=== PATIENT | female | born 1990 | race Caucasian/White ===

== ENCOUNTER 2018-12-13 22:42 | Inpatient (IN) | payer MEDICAID ==
[~2018-12-13] VITALS: Ht 162.6 cm; Wt 68.1 kg
[~2018-12-13 22:42] MED LIST: BACTDS PO; CEPH-443 PO
[2018-12-13 23:38] VITALS: BP 108/61; PULSE 80; RESP 15
[2018-12-14] MEDS ORDERED: LACTATED RINGER'S 1,000 ML IV ONE (01:30)
[2018-12-14] MEDS ORDERED: TERBUTALINE 1 MG/ML INJ SC PRN (01:30)
[2018-12-14] MEDS: LACTATED RINGER'S 1,000 ML IV SCH ×5 (03:00→21:53)
--- NOTE | 2018-12-14 03:16 | HP ---
Date/Time of Note Date/Time of Note DATE: 12/14/18 TIME: 02:53 OB - History Hx of Present Free Text/Dictation 28 y.o. with an IUP at 23w 5d came in with c/o brown d/c and vaginal pressure. Pt was jeol frequently and was given IV hydration and one dose of terbutaline while waiting for the US. On US the cervix was determined to be short 1.47 cm and there was funneling. The pt was admitted. Estimated Due Date: Apr 05, 2019 : 2 Para: 1 Care: Good Care Ultrasounds: Normal mid trimester US Obstetrical Complications: None Medical Complications: None Other Concerns: POBHx: x 1 for failure to progress, 7# 10 oz 2016. Past Family/Social History * Past Medical, Surgical, Family and Obstetric Histories reviewed with pt as the prenatals are not available. Blood Type: Unknown Rubella: unknown RPR/VDRL: Unknown GBS Status: Unknown HBsAG: Unknown OB Admission Exam Vital Signs Vital Signs Vital Signs Date Temp Pulse Resp B/P (MAP) Pulse Ox O2 O2 Flow FiO2 Time Delivery Rate 12/13/18 98.4 80 15 108/61 Room Air 23:38 (77) Physical Exam HEENT: WNL Heart: Rhythm Normal Lungs: Clear Abdomen: WNL Extremities: Normal Cervical Dilatation: Fingertip (on US the cervix is 1.47 cm and there is funneling.) Membranes: Intact Heart Rate: 140's Accelerations: Accelerations Present Decelerations: No Decelerations Varibility: Moderate Contractions on Admission: < 5 Minutes Apart Intensity: Mild Last 72 hours Lab Results CBC & BMP 12/14/18 00:24 OB Assessment/Plan Reason for admission: labor Other Assessment: Short cervix. Other plan: Admit for IV hydration. Magnesium sulfate tocolysis and neuroprotection. Antibiotics. Steroids. Bedrest. Perinatology and neonatology consults today. ADRIEL RANDALL MD Dec 14, 2018 03:08
[2018-12-14] MEDS ORDERED: ACETAMINOPHEN 325 MG TAB PO PRN (03:30)
[2018-12-14] MEDS ORDERED: MAGNESIUM SULFATE 4 GM/100 ML 100 ML IV ONE (03:30)
[2018-12-14] MEDS ORDERED: AL HYDROX/MG HYDROX/SIMETH 30 ML CUP PO PRN (03:30)
[2018-12-14] MEDS: MAGNESIUM SULFATE 20 GM/500 ML 500 ML IV SCH ×2 (04:44→14:58)
[2018-12-14] MEDS: AMPICILLIN 2 GM/NS (PMX) 100 ML IV SCH ×4 (04:45→22:48)
[2018-12-14] MEDS: BETAMET NA PHOS/AC(6 MG/ML) 2 ML INJ SYG IM SCH (04:46)
--- NOTE | 2018-12-14 04:58 | TRIAGE ---
OB Triage Datetime Report Generated by CPN: 12/14/2018 04:57 Datetime: 12/14/2018 02:09 Stage of : OB Triage Heart Rate FHR Baseline Rate: 145 Monitor Mode: External US Datetime: 12/14/2018 01:15 Stage of : OB Triage Datetime: 12/14/2018 00:26 Stage of : OB Triage Heart Rate FHR Baseline Rate: 145 Monitor Mode: External US Datetime: 12/13/2018 23:30 Stage of : OB Triage Labor Evaluation Frequency: 2-5 Monitor Mode: External Duration (sec)2399: 20-30 Quality: Mild Pattern: Normal: <= 5 Contractions in 10 Minutes Resting Tone Panola: Relaxed Heart Rate FHR Baseline Rate: 150 Monitor Mode: External US FHR Baseline Changes: No Baseline Change Variability: Moderate 6-25 bpm Accelerations: 15X15 Decelerations: None Category: Category I Datetime: 12/13/2018 23:27 Labor Evaluation Frequency: 2-3 Monitor Mode: External Quality: Mild Pattern: Normal: <= 5 Contractions in 10 Minutes Resting Tone Panola: Relaxed Heart Rate FHR Baseline Rate: 150 Monitor Mode: External US FHR Baseline Changes: No Baseline Change Variability: Moderate 6-25 bpm Accelerations: 10X10 Decelerations: None Category: Category I Datetime: 12/13/2018 23:00 Time of Arrival: 12/13/2018 22:25 EGA: 23.6 Arrived By: Ambulatory Arrived From: Home Chief Complaint: c/o vag pressure and brown discharge beg 2200 Movement: Present Contractions: Denies/Absent Rupture of Membranes: Denies Vaginal Bleeding: Small Vaginal Discharge: Present Recent Sexual Intercouse: Denies Abdominal Trauma: Not Applicable Patient Complaints: Other Time Provider Notified: 12/13/2018 23:30 Provider Notified: Dr Shepherd Initial Plan: EFM,PO HYDRATION, UA,CBC,TYPE AND SCREEN,CVL,EFW,GABRIELLA Datetime: 12/13/2018 22:55 Vaginal Exam Membrane Status: Intact Datetime: 12/13/2018 22:51 Stage of : OB Triage Maternal Assessment Level of Consciousness: Keenly Alert, Responsive Headache: Denies Blurred Vision: No Respiratory Effort: Unlabored Nausea/Vomiting: Denies RUQ Epigastric Pain: Denies Facial Edema: None Monitor Mode: External Resting Tone Panola: Relaxed Heart Rate FHR Baseline Rate: 150 Monitor Mode: External US Pain Assessment Pain Scale: 2 Pain Presence: Intermittent Pain Type: Pressure
[2018-12-14] MEDS: PRENATAL VITAMIN PO SCH (10:41)
[2018-12-15] MEDS: MAGNESIUM SULFATE 20 GM/500 ML 500 ML IV SCH ×3 (01:19→19:21)
[2018-12-15] MEDS: AMPICILLIN 2 GM/NS (PMX) 100 ML IV SCH ×4 (04:45→23:00)
[2018-12-15] MEDS: BETAMET NA PHOS/AC(6 MG/ML) 2 ML INJ SYG IM SCH (04:46)
[2018-12-15] MEDS: PRENATAL VITAMIN PO SCH (09:02)
[2018-12-15] MEDS: LACTATED RINGER'S 1,000 ML IV SCH ×4 (11:11→19:59)
--- NOTE | 2018-12-15 17:16 | QN ---
Documentation Comment consult neonatology Consult at the request of Dr. Ed Goldstein Efrem was admitted 2 days ago 23 and 5/seventh weeks gestation by dates with evidence of labor and a brown discharge. Mother was given antibiotics, magnesium sulfate tocolysis and 2 doses of steroids. Presently mother is at 24 weeks by dates 25 05/31 by ultrasound with an estimated weight of 800 g. I spoke to the mother about the risks of delivery at both 24+ weeks and 29 weeks including but not limited to the following. 1 RDS/ALP. I discussed premature lung disease including respiratory distress syndrome of use of ventilatory management and oxygen. Also discussed the risk of apnea prematurity requiring possible noninvasive support and/or caffeine. Usually these will have resolved somewhere around 34 to 35 weeks of gestation. 2. Cardiac/PDA: Spoke about the risks of hypertension use of volume support and inotropic agents. I also discussed the risks of the ductus arteriosus that may complicate the respiratory disease on the use of medication treatment or surgical closure if necessary. The risk for PDA decreases remarkably from 25 to 29 weeks of gestation 3. Infectious disease: Spoke about the risks of infection and premature infants and the use of antibiotics. Also discussed possibility of necrotizing colitis which is increased at 24 to 25 weeks very rare in those over 30 weeks of gestation. 4. Anemia: Spoke to the risks of anemia which are significant at 24 to 25 weeks due to the number of blood tests and support the infant needs. 29weeks iron and epoetin can be used and transfusions are done very infrequently. 5. Spoke about the risks of jaundice use of phototherapy 6. TELEMETRY MONITOR/IVH: Spoke about the grading system for intraventricular hemorrhages and the long-term neurodevelopmental issues associated with that. 24 to 25 weeks risk of a grade 3/4 hemorrhage is probably around 10 to 15% at 29 weeks is less than 5%. 7. This with the risk of retinopathy prematurity and its associated with oxygen requirement and ventilatory support. I explained that the infant will be followed for this during the hospital stay. 8. I spoke about the ability mortality associated with 24-week gestation deliveries and the change at 29 weeks. Mortality 24 weeks is approximately 20 to 30% of less than 5% of those at 29 weeks. I spoke about the various morbidities premature infants could have other long-term sequelae. thank you for this consult and will be available for further consultation and/or attendance at delivery as needed. If you have any further questions please do not hesitate to contact the NICU graph review of the mother's chart session with mother greater than 45 minutes of which 50% or more was with the mother. WILMA MCKINNEY MD Dec 15, 2018 17:16
[2018-12-16] MEDS: LACTATED RINGER'S 1,000 ML IV SCH ×3 (03:45→15:22)
[2018-12-16] MEDS: AMPICILLIN 2 GM/NS (PMX) 100 ML IV SCH (05:00)
--- NOTE | 2018-12-16 05:57 | CONS ---
DATE OF ADMISSION: 12/14/2018 DATE OF CONSULTATION: 12/15/2018 HISTORY OF PRESENT ILLNESS: The patient is currently at 23 weeks and 6 days, presented with contract ions. Her transvaginal cervical length shows the cervix to be slightly over 1 cm. She is currently on magnesium sulfate, given betamethasone. She has no contractions currently. PAST MEDICAL HISTORY: Her history is negative. PHYSICAL EXAMINATION: VITAL SIGNS: Stable. Physical exam deferred. heart tones reassuring for the gestational age, no contractions. IMPRESSION: Intrauterine at 23 and 6 on magnesium sulfate for labor, status post b etamethasone times 1. She is feeling better. RECOMMENDATIONS: Discontinue magnesium sulfate 24 hours after the second dose of betamethasone and a t that time discontinue THE antibiotics. I do recommend in-house management until patient is about 2 7 to 28 weeks, given the very and the very short cervical length. Dictated By: CASPER FLOR MD ST/NTS Conf#: [id number] DID#: [id number] CC: WILLIAM GRAHAM MD;*EndCC*
[2018-12-16] MEDS: PRENATAL VITAMIN PO SCH (09:17)
--- NOTE | 2018-12-16 19:07 | QN ---
Documentation Comment No complaint Afebrile VSS Strip Appropriate for GA Cervix 1 cm/ 90% Patient is off magnesium sulfate Start nifedipine WILLIAM GRAHAM MD Dec 16, 2018 19:07
[2018-12-17] MEDS: NIFEdipine 10 MG CAP PO SCH ×3 (00:03→12:02)
[2018-12-17] MEDS: LACTATED RINGER'S 1,000 ML IV SCH ×3 (01:52→18:06)
[2018-12-17] MEDS: PRENATAL VITAMIN PO SCH (09:03)
--- NOTE | 2018-12-17 14:03 | QN ---
Documentation Comment Patient with occasional contractions Afebrile VSS Strip Appropriate for GA Continue with present care. WILLIAM GRAHAM MD Dec 17, 2018 14:03
[2018-12-17] MEDS ORDERED: CEFAZOLIN 2 GM/50 ML (PMX) 50 ML IVPB ONE (16:11)
[2018-12-17] MEDS ORDERED: AZITHROMYCIN 500MG/NS (PMX) 250 ML IV SCH (16:30)
[2018-12-17] MEDS ORDERED: CEFAZOLIN 2 GM/50 ML (PMX) 50 ML IVPB SCH (16:30)
[2018-12-17] MEDS ORDERED: ONDANSETRON 4 MG INJ ONE (16:56)
[2018-12-17] MEDS ORDERED: DEXAMETHASONE 4 MG/ML 1 ML INJ ONE (16:56)
[2018-12-17] MEDS ORDERED: FAMOTIDINE 20 MG INJ ONE (16:56)
[2018-12-17] MEDS ORDERED: OXYTOCIN 30 UNITS/LR 500 ML IV ONE (17:01)
[2018-12-17] MEDS ORDERED: KETAMINE (50 MG/ML) 10 ML VIAL ONE (17:01)
--- NOTE | 2018-12-17 17:45 | PREAC ---
Date/Time of Note Date/Time of Note DATE: 12/17/18 TIME: 17:42 Anesthesia Eval and Record Evaluation Time Pre-Procedure Interview DATE: 12/17/18 TIME: 17:42 Age 28 Sex female NPO: 8 hrs Preoperative diagnosis labor breech Planned procedure emergency c section Past Medical History Past Medical History: None Surgery & Anesthesia Issues No known issue Meds Anticoagulation: No Beta Carlos within 24 hr: No Reason Beta Carlos not given: Pt. not on B-Carlos Active Scripts Cephalexin* (Keflex*) 500 Mg Capsule, 500 MG PO QID for 5 Days, CAP Prov:TRINH SILVA I. LABORER STORES 09/28/15 Sulfamethoxazole-Trimethoprim* (Bactrim* DS) 800-160 Mg Tab, 1 TAB PO BID for 5 Days, TAB Prov:TRINH SILVA I. LABORER STORES 09/28/15 Current Medications Terbutaline Sulfate (Brethine) 0.25 mg PRN PRN SC CONTRACTIONS Last administered on 12/14/18at 01:36; Admin Dose 0.25 MG; Start 12/14/18 at 01:30 Prenat Multivit/ [place]/Iron/Folic Ac () 1 tab DAILY PO Last administered on 12/17/18at 09:03; Admin Dose 1 TAB; Start 12/14/18 at 09:00 Acetaminophen (Tylenol Tab) 650 mg Q4H PRN PO .PAIN OR TEMP; Start 12/14/18 at 03:30 Al Hydrox/Mg Hydrox/Simethicone (Mag-Al Plus) 30 ml Q6H PRN PO .GI UPSET; Start 12/14/18 at 03:30 Nifedipine (Procardia) 20 mg Q6 PO Last administered on 12/17/18at 12:02; Admin Dose 20 MG; Start 12/17/18 at 00:00 Lactated Ringer's 1,000 ml @ 125 mls/hr Q8H IV Last administered on 12/17/18at 16:21; Admin Dose 125 MLS/HR; Start 12/17/18 at 16:07 Cefazolin Sodium/ Dextrose 50 ml @ 100 mls/hr ONCE IVPB ; Start 12/17/18 at 16:30 Azithromycin 250 ml @ 250 mls/hr ONCE IV Last administered on 12/17/18at 16:21; Admin Dose 250 MLS/HR; Start 12/17/18 at 16:30 Meds reviewed: Yes Allergies Coded Allergies: No Known Allergy (Unverified , 12/13/18) Allergies Reviewed: Yes Labs/Studies Labs Reviewed: Reviewed by anesthesiologist Result Diagram: 12/14/18 0024 test: N/A Pre-procedure Exam Last vitals Vital Signs Date Temp Pulse Resp B/P (MAP) Pulse Ox O2 O2 Flow FiO2 Time Delivery Rate 12/13/18 98.4 80 15 108/61 Room Air 23:38 (77) Airway: Adequate mouth opening, Adequate thyromental dist Mallampati: Mallampati IV Teeth: Normal Lung: Normal Heart: Normal ASA Physical Status ASA physical status: 2 Emergency: E Pre-operative Attestations Prior to commencing anesthesia and surgery, the patient was re-evaluated, there was verification of: *The patient's identity *The results of appropriate recent lab work and preoperative vital signs *The above evaluation not changing prior to induction *Anesthetic plan, risk benefits, alternative and complications discussed with patient/family; questions answered; patient/family understands, accepts and wishes to proceed. CARLOS THURMAN DO Dec 17, 2018 17:45
--- NOTE | 2018-12-17 17:55 | PAC ---
Date/Time of Note Date/Time of Note DATE: 12/17/18 TIME: 17:54 Post-Anesthesia Notes Post-Anesthesia Note Last documented vital signs Vital Signs Date Temp Pulse Resp B/P (MAP) Pulse Ox O2 O2 Flow FiO2 Time Delivery Rate 12/17 98 69 18 116/65 100 Room Air Activity: WNL Respiratory function: WNL Cardiovascular function: WNL Mental status: Baseline Pain reasonably controlled: Yes Hydration appropriate: Yes Nausea/Vomiting absent: Yes CARLOS THURMAN DO Dec 17, 2018 17:55
[2018-12-17] MEDS ORDERED: LORAZEPAM 2 MG INJ IV PRN (18:00)
[2018-12-17] MEDS ORDERED: NALOXONE (0.4 MG/ML) INJ IV PRN (18:00)
[2018-12-17] MEDS ORDERED: HYDROmorphONE 0.2 MG/ML PCA IV PRN (18:00)
[2018-12-17] MEDS ORDERED: ONDANSETRON 4 MG INJ IV PRN ×2 (18:00→21:30)
[2018-12-17] MEDS ORDERED: KETOROLAC 30 MG INJ IV PRN ×2 (18:00→21:30)
[2018-12-17] MEDS ORDERED: HYDROmorphONE 1 MG/5 ML IV SYRINGE IV PRN ×3 (18:00)
[2018-12-17] MEDS ORDERED: MEPERIDINE 25 MG INJ IV PRN (18:00)
[2018-12-17] MEDS ORDERED: DIPHENHYDRAMINE 50 MG INJ IV PRN (18:00)
--- NOTE | 2018-12-17 18:01 | QN ---
Documentation Comment Patient was noted to have an increase in frequency of her contractions. On exam, patient was noted to be 9.5 cm dilated with breech presentation. Case discussed with Dr Durand ([facility]) who recommends to deliver the patient by section. Patient counseled about risks, benefits and alternatives. Patient stated she understood and gave informed consent for the procedure. WILLIAM GRAHAM MD Dec 17, 2018 18:01
--- NOTE | 2018-12-17 18:06 | OPPN ---
Date/Time of Note Date/Time of Note DATE: 12/17/18 TIME: 18:01 Operative Report Planned Procedure Procedure date Dec 17, 2018 Procedure(s) Repeat and lysis of adhesions Performed by William Graham MD Engineer Assistant: SOAHN PAYNE MD 2nd Engineer Assistant none Anesthesiologist: CARLOS THURMAN DO Pre-procedure diagnosis 24 weeks and 3 days, previous C/S, breech presentation inactive labor [id number] Anesthesia Type: [id number] spinal Post-Procedure Post-procedure diagnosis Same and pelvic adhesions Findings Live Baby, Apgars 5, 7 and 9 Estimated Blood Loss: other (500 ml) Specimen(s) Placenta Grafts/Implant(s) none Complication(s) none WILLIAM GRAHAM MD Dec 17, 2018 18:06
[2018-12-17] MEDS ORDERED: OXYTOCIN 30 UNITS/LR 500 ML IV SCH ×2 (20:00→20:52)
[2018-12-17 20:40] VITALS: BP 106/59; PULSE 57; RESP 19
[2018-12-17] MEDS ORDERED: LACTATED RINGER'S 1,000 ML IV SCH (20:52)
[2018-12-17] MEDS ORDERED: OXYTOCIN 30 UNITS/LR 500 ML IV PRN (21:00)
[2018-12-17] MEDS ORDERED: OXYCODONE/ACETAMINOPHEN (5/325) TAB PO PRN ×2 (21:00)
[2018-12-17] MEDS: SENNA/DOCUSATE NA (8.6MG/50MG) TAB PO SCH (21:00)
[2018-12-17] MEDS ORDERED: MISOPROSTOL 200 MCG TAB PR PRN (21:00)
[2018-12-17] MEDS ORDERED: LANOLIN HPA 1 PKT TOP PRN (21:00)
[2018-12-17] MEDS ORDERED: CARBOPROST 250 MCG INJ IM PRN (21:00)
[2018-12-17] MEDS ORDERED: METHYLERGONOVINE 0.2 MG INJ IM PRN (21:00)
[2018-12-17] MEDS ORDERED: DIPHENHYDRAMINE 50 MG INJ IM PRN (21:30)
[2018-12-17] MEDS: IBUPROFEN 800 MG TAB PO SCH (22:00)
[2018-12-18] VITALS: BP 102/53; PULSE 59; RESP 19
--- NOTE | 2018-12-18 00:21 | OPR ---
DATE OF OPERATION: 12/17/2018 PREOPERATIVE DIAGNOSES: 1. at 24 weeks and 3 days with previous section. 2. Breech presentation, in active labor. POSTOPERATIVE DIAGNOSES: 1. at 24 weeks and 3 days with previous section. 2. Breech presentation, in active labor. 3. Dense pelvic adhesions. OPERATION PERFORMED: Repeat section with vertical incision and lysis of adhesions. SURGEON: William Shepherd MD JEWELRY DEPARTMENT SUPERVISOR: Edgar Yanez MD ANESTHESIA: Spinal. ANESTHESIOLOGIST: Dr. Roberts PROCEDURE: The patient was taken to the operating room and placed on the operating table. After suc cessful spinal anesthesia was given, the patient was placed in supine position. The area was prepare d and draped in the usual sterile fashion. Spinal anesthesia was satisfactory. Using a scalpel, a P fannenstiel incision was made about 2 fingerbreadths above the symphysis pubis. Incision was carried down to the fascia. The fascia was incised and extended bilaterally with the Bovie. Two Bean's w ere used to separate the fascia from the muscle. The muscle was seen in the midline down to peritone um. The peritoneum was secured with 2 Kellys and incised with Metzenbaum scissors. Upon entering th e peritoneal cavity, there were dense pelvic adhesions involving anterior aspect of the uterus. Josh p lysis of adhesions was performed. Using a scalpel, a vertical incision was made on the anterior as pect of the uterus. Upon entering the uterine cavity, bandage scissors were inserted to extend the i ncision up and down. The baby girl was delivered from a footling breech presentation. The baby was handed off to the bale tie machine operator in attendance. Apgars were 5 at 1 minute, 7 at 5 minutes, and 9 at 1 0 minutes. The placenta was delivered without difficulty. The uterus was closed with #1 Monocryl co ntinuous locked. After assuring hemostasis, both ovaries and tubes were inspected, all looked normal . The peritoneum was closed with 2-0 Vicryl continuous. The fascia was closed with #1 Vicryl contin uous in 2 segments. The subcutaneous tissue was reapposed with 2-0 plain. Skin was closed with stap les. ESTIMATED BLOOD LOSS: 500 mL. COUNTS: All counts were correct. Dictated By: WILLIAM BRYSON/MAKENNA Conf#: [id number] [facility]#: [id number]
[2018-12-18 04:00] VITALS: BP 95/55; PULSE 58; RESP 19
[2018-12-18] MEDS: IBUPROFEN 800 MG TAB PO SCH ×3 (06:00→21:30)
[2018-12-18 08:00] VITALS: BP 103/59; PULSE 62; RESP 18
[2018-12-18] MEDS: SENNA/DOCUSATE NA (8.6MG/50MG) TAB PO SCH ×2 (08:46→21:30)
[2018-12-18 12:00] VITALS: BP 102/60; PULSE 70; RESP 18
--- NOTE | 2018-12-18 12:27 | QN ---
Documentation Comment No complaint Afebrile VSS Abdomen soft ND POD #1 Stable Advance diet Ambulate WILLIAM GRAHAM MD Dec 18, 2018 12:27
[2018-12-18 15:35] VITALS: BP 98/54; PULSE 65; RESP 16
[2018-12-18 20:05] VITALS: BP 106/66; PULSE 70; RESP 18
[2018-12-19 04:32] VITALS: BP 99/62; PULSE 65; RESP 18
[2018-12-19] MEDS: IBUPROFEN 800 MG TAB PO SCH ×3 (06:00→21:53)
[2018-12-19 08:10] VITALS: BP 103/63; PULSE 66; RESP 18
[2018-12-19] MEDS: SENNA/DOCUSATE NA (8.6MG/50MG) TAB PO SCH ×2 (09:00→21:53)
--- NOTE | 2018-12-19 13:25 | QN ---
Documentation Comment No complaint Afebrile VSS Abdomen soft POD #2 Stable Continue present care. WILLIAM GRAHAM MD Dec 19, 2018 13:25
[2018-12-19 15:48] VITALS: BP 114/55; PULSE 74; RESP 20
[2018-12-19 20:28] VITALS: BP 107/62; PULSE 70; RESP 18
[2018-12-20 04:20] VITALS: BP 102/62; PULSE 68; RESP 18
[2018-12-20] MEDS: IBUPROFEN 800 MG TAB PO SCH ×2 (06:02→14:34)
[2018-12-20 08:00] VITALS: BP 102/60; PULSE 70; RESP 16
[2018-12-20] MEDS ORDERED: DIPHTH/TET/ACEL PERTUSS (ADULT) 0.5 ML VIAL IM* ONE (09:00)
[2018-12-20] MEDS: SENNA/DOCUSATE NA (8.6MG/50MG) TAB PO SCH (09:00)
[2018-12-20 15:40] VITALS: BP 100/65; PULSE 77; RESP 16
--- NOTE | 2018-12-20 19:22 | DS ---
Date/Time of Note Date/Time of Note DATE: 12/20/18 TIME: 19:21 Obstetrical Discharge Record Final Diagnosis Final Diagnosis: delivered Section Section: Repeat Complications Tocolytics: Magnesium Sulfate Condition on Discharge Physical Assessment Voiding: Yes Bowel Movement: Yes Breast: Soft, non-tender, Filling Fundus: Firm Abdomen and Incision: Incision intact Calf Tenderness: No Patient Condition: Stable WILLIAM GRAHAM MD Dec 20, 2018 19:22
--- NOTE | 2018-12-21 21:37 | DELSUM ---
Delivery Summary A-C Datetime Report Generated by CPN: 12/21/2018 21:37 DELIVERY PERSONNEL Electrical Installation Inspector: Reyes, Wenbing MATERNAL INFORMATION Delivery Anesthesia: Spinal Medications in Delivery: see anesthesia records Delivery QBL (ml): 500 Placenta Cultured: No Maternal Complications: Other Other Maternal Complications: ptl LABOR SUMMARY EDC: 04/07/2019 00:00 No. Babies in Womb: 1 Attempted: No Labor Anesthesia: Intrathecal LABOR INFORMATION Reason for Induction: Not Applicable Onset of Labor: 12/13/2018 22:00 Group B Beta Strep: Not Done Antibiotics # of Doses: 2 Antibiotics Time of Last Dose: 12/17/2018 16:40 Steroids Given: Full Course; >24Hs before Delivery Reason Steroids Not Administered: Indication MEMBRANES Membranes Rupture Method: Artificial Rupture of Membranes: 12/17/2018 17:07 Length of Rupture (hr): 0.02 Amniotic Fluid Color: Clear Amniotic Fluid Amount: Small Amniotic Fluid Odor: Normal STAGES OF LABOR Stage 3 hr: 0 Stage 3 min: 1 Total Time in Labor hr: 91 Total Time in Labor min: 9 CSECTION DELIVERY Primary Indication: Breech Presentation CSection Urgency: Emergency CSection Incidence: Repeat Labor: Labor Elective: Nonelective CSection Incision: Lower Vertical BABY A INFORMATION Delivery Date/Time: 12/17/2018 17:08 Method of Delivery: Born in Route : No : N/A Forceps: N/A Vacuum Extraction: N/A Shoulder Dystocia : N/A SHOULDER DYSTOCIA BABY A Infant Delivery Date/Time: 12/17/2018 17:08 PRESENTATION/POSITION BABY A Presentation: Breech Cephalic Presentation: N/A Breech Presentation: Double Footling PLACENTA INFORMATION BABY A Placenta Delivery Time : 12/17/2018 17:09 Placenta Method of Delivery: Manual Removal Placenta Status: Delivered SCORES BABY A Heart Rate 1 min: >100 bpm Resp Effort 1 min: Absent Reflex Irritability 1 min: Grimace Muscle Tone 1 min: Some Flexion of Extrem Color 1 min: Body Twin, Extremit Blue Resuscitation Effort 1 min: Tactile Stimulation; Oxygen; PPV/NCPAP; Endotracheal Intubation SCORE 1 MIN: 5 Heart Rate 5 min: >100 bpm Resp Effort 5 min: Slow, Irregular Reflex Irritability 5 min: Cough/Sneeze/Pulls Away Muscle Tone 5 min: Some Flexion of Extrem Color 5 min: Body Twin, Extremit Blue Resuscitation Effort 5 min: Tactile Stimulation; Oxygen; PPV/NCPAP; Endotracheal Intubation SCORE 5 MIN: 7 Heart Rate 10 min: >100 bpm Resp Effort 10 min: Good Cry Reflex Irritability 10 min: Cough/Sneeze/Pulls Away Muscle Tone 10 min: Active Motion Color 10 min: Body Twin, Extremit Blue Resuscitation Effort 10 min: Endotracheal Intubation SCORE 10 MIN: 9 INFANT INFORMATION BABY A Gestational Age at Delivery: 24.1 Gestational Status: - <34 Weeks Outcome : Liveborn, with signs of life Infant Condition : Critical Infant Sex: Female IDENTIFICATION/MEDS BABY A ID Band Number: [id number] ID Band Location: Right Leg; Left Arm Sensor Applied: No WEIGHT/LENGTH BABY A Birthweight (gm): 690 Weight (lb): 1 Weight (oz): 8 Infant Length (in): 13.50 Infant Length (cm): 34.29 CORD INFORMATION BABY A No. Cord Vessels: 3 Nuchal Cord : N/A Cord Blood Taken: Yes Suction: Mouth; Nose ASSESSMENT BABY A Infant Complications: None Complications- Other: PTD Physical Findings at Delivery: Within Normal Limits Outside Rigger/ALS Called : Yes Care By: nicu team Transferred To: NICU
== END 2018-12-20 21:15 | disposition home or self-care (01) | DRG 787 ==
LOC: OBT 22:42 → L-D 22:44 → OBT 12-14 03:10 → L-D 12-14 03:10 → UNDOADMIN 12-14 03:10 → L-D 12-14 20:01 → PP1 12-17 20:47
PROVIDERS: ADMIT Obstetrics & Gynecology; ATTEND Obstetrics & Gynecology
PROC: 10D00Z1 Extraction of Products of Conception, Low, Open Approach (ICD-10-PCS; principal; 2018-12-14)
DX: O60.12X0 Preterm labor second trimester with preterm delivery second trimester, not applicable or unspecified (principal); O26.872 Cervical shortening, second trimester; O32.1XX0 Maternal care for breech presentation, not applicable or unspecified; Z3A.24 24 weeks gestation of pregnancy; Z37.0 Single live birth
CPT/HCPCS: 36415; 36600; 76815; 76817; 81001; 82803; 83735; 85025; 85610; 85730; 86592; 86850; 86900; 86901; 88307; 96360; 96372; 99464; G0463; J0290; J0456; J0690; J0702; J1100; J1170; J1885; J2405; J2590; J3105; J3475; J7120